=== PATIENT | male | born 1990 | race Caucasian/White ===

== ENCOUNTER 2025-04-10 09:31 | Outpatient (CLI) | payer OTHER, SELFPAY ==
--- NOTE | 2025-04-10 09:40 | NEURO_ITS ---
Impression: # Complains of paresthesia of hands. # No Carpal Tunnel Syndrome # Left Ulnar Neuropathy # Normal Needle/EMG exam. # Pt has bilateral cross innervation between Ulnar/Median nerves. # Had visual vagal syncope during study. Cannot do more localization at this time. Nerve Conduction Studies ?Stim Site NR Peak (ms) P-T Amp (?V) Site1 Site2 Delta-P (ms) Dist (cm) Jakub (m/s) Left Median Anti Sensory (2-3nd Digit) Wrist ? 2.7 25.0 Wrist 2-3nd Digit 2.7 14.0 52 Wrist ? 2.7 26.2 Wrist 2-3nd Digit 2.7 14.0 52 Right Median Anti Sensory (2-3nd Digit) Wrist ? 2.6 22.9 Wrist 2-3nd Digit 2.6 14.0 54 Wrist ? 2.5 24.1 Wrist 2-3nd Digit 2.6 14.0 54 Left Radial Anti Sensory (Base 1st Digit) Wrist ? 1.6 19.2 Wrist Base 1st Digit 1.6 0.0 Right Radial Anti Sensory (Base 1st Digit) Wrist ? 2.2 21.7 Wrist Base 1st Digit 2.2 0.0 Left Ulnar Anti Sensory (5th Digit) Wrist ? 2.4 27.7 Wrist 5th Digit 2.4 14.0 58 Right Ulnar Anti Sensory (5th Digit) Wrist ? 2.3 25.6 Wrist 5th Digit 2.3 14.0 61 ?Stim Site NR Onset (ms) O-P Amp (mV) Site1 Site2 Delta-0 (ms) Dist (cm) Jakub (m/s) Left Median Motor (Abd Poll Brev) Wrist ? 2.6 1.4 Elbow Wrist 6.6 34.0 52 Elbow ? 9.2 1.7 Right Median Motor (Abd Poll Brev) Wrist ? 2.4 1.0 Elbow Wrist 1.2 26.0 217 Elbow ? 3.6 6.4 ELB/ADM Wrist 5.0 26.0 52 ELB/ADM ? 7.4 3.4 Erbs ELB/ADM 1.3 0.0 Erbs ? 8.7 3.0 Left Ulnar Motor (Abd Dig Minimi) Wrist ? 2.4 7.1 A Elbow Wrist 7.1 36.0 51 A Elbow ? 9.5 4.1 B Elbow Wrist 5.0 26.0 52 B Elbow ? 7.4 4.9 Right Ulnar Motor (Abd Dig Minimi) Wrist ? 1.9 8.4 A Elbow Wrist 6.0 35.0 58 A Elbow ? 7.9 7.2 B Elbow Wrist 7.0 24.0 34 B Elbow ? 8.9 2.0 F Wave Studies ?NR F-Lat (ms) L-R F-Lat (ms) Left Median (Mrkrs) (Abd Poll Brev) ? 28.09 0.97 Right Median (Mrkrs) (Abd Poll Brev) ? 29.06 0.97 Left Ulnar (Mrkrs) (Abd Dig Min) ? 31.64 2.68 Right Ulnar (Mrkrs) (Abd Dig Min) ? 28.96 2.68 Electromyography ?Side Muscle Nerve Root Ins Act Fibs Amp Dur Recrt Comment Right 1stDorInt Ulnar C8-T1 Nml Nml Nml Nml Nml Right Ext Indicis Radial (Post Int) C7-8 Nml Nml Nml Nml Nml Right Ext Digitorum Radial (Post Int) C7-8 Nml Nml Nml Nml Nml Right BrachioRad Radial C5-6 Nml Nml Nml Nml Nml Right PronatorTeres Median C6-7 Nml Nml Nml Nml Nml Right Abd Poll Brev Median C8-T1 Nml Nml Nml Nml Nml Right ABD Dig Min Ulnar C8-T1 Nml Nml Nml Nml Nml Right FlexPolLong Median (Ant Int) C7-8 Nml Nml Nml Nml Nml Right Abd Poll Long Radial (Post Int) C7-8 Nml Nml Nml Nml Nml Left 1stDorInt Ulnar C8-T1 Nml Nml Nml Nml Nml Left Ext Indicis Radial (Post Int) C7-8 Nml Nml Nml Nml Nml Left Ext Digitorum Radial (Post Int) C7-8 Nml Nml Nml Nml Nml Left BrachioRad Radial C5-6 Nml Nml Nml Nml Nml Left PronatorTeres Median C6-7 Nml Nml Nml Nml Nml Left Abd Poll Brev Median C8-T1 Nml Nml Nml Nml Nml Left ABD Dig Min Ulnar C8-T1 Nml Nml Nml Nml Nml Left FlexPolLong Median (Ant Int) C7-8 Nml Nml Nml Nml Nml Left Abd Poll Long Radial (Post Int) C7-8 Nml Nml Nml Nml Nml
== END 2025-04-10 09:32 | disposition home or self-care (01) ==
PROVIDERS: PCP Nurse Practitioner Adult Health; Visit Provider Nurse Practitioner Adult Health
DX: R20.2 Paresthesia of skin (principal); G56.22 Lesion of ulnar nerve, left upper limb
CPT/HCPCS: 95886; 95911

== ENCOUNTER 2025-05-08 08:50 | Outpatient (CLI) | payer OTHER, SELFPAY ==
--- NOTE | ~2025-05-08 | XR_ITS ---
EXAMINATION: XR hand BI arthritis min 3V, 05/08/2025 8:55 CDT HISTORY: G56.20 - Lesion of ulnar nerve, unspecified upper limb COMPARISON: No comparisons available. Findings: No acute fracture or malalignment. No significant degenerative changes. Soft tissues unremarkable. Impression: No acute fracture or malalignment. Reviewed, dictated and finalized at location P. Impression: No acute fracture or malalignment.
--- OUTSIDE RECORDS SUMMARY | 2025-05-08 09:23 | XMS_ITS | Encounter Summary ---
Author Organization [facility] Health Address [address] [place] [address] Care Team Providers Care Intelligence Specialist Name Role Phone Unavailable Primary Care Provider Unavailabl e Prior Encounters Date Type Department Care Team Description 09/07/2021 4:00 PM SENIOR PENSIONS ADMINISTRATOR Office Visit [facility] [address] [place] [phone] Ash Art, DDS 07/28/2021 Travel 07/28/2021 4:00 PM SENIOR PENSIONS ADMINISTRATOR Office Visit [facility] [address] [phone] lA Lucas, ANSELMO 06/24/2021 Travel 07/30/[address] [facility] [address] [place] [phone] <No scans attached> 07/30/2019 Converted CPS Chart Documents [facility] [address] [place] [phone] <No scans attached> 07/30/2019 Converted 13x Documents [facility] [address] [phone] <No scans attached> Plan of Treatment Not on file Procedures Procedure Name Priority Date/Time Associated Diagnosis Comments BITEWING - SINGLE RADIOGRAPHIC IMAGE Routine 09/07/2021 4:00 PM SENIOR PENSIONS ADMINISTRATOR ADDITIONAL X-RAY Routine 09/07/2021 4:00 PM SENIOR PENSIONS ADMINISTRATOR SINGLE X-RAY Routine 09/07/2021 4:00 PM SENIOR PENSIONS ADMINISTRATOR LIMITED ORAL EVALUATION - PROBLEM FOCUSED Routine 09/07/2021 4:00 PM SENIOR PENSIONS ADMINISTRATOR CBCT - PROBLEM FOCUSED Routine 4:00 PM SENIOR PENSIONS ADMINISTRATOR CANCELLED APPOINTMENT Routine 04/07/2021 2:00 AM CDT ORAL HYGIENE INSTRUCTIONS Routine 2020 2:00 AM CDT PROPHYLAXIS - ADULT Routine 12/22/2020 2 :00 AM CDT PERIODIC ORAL EVALUATION - ESTABLISHED PATIENT Routine 12/22/2020 2:00 AM CDT BITEWINGS - FOUR RADIOGRAPHIC IMAGES Routine 12/22/2020 2:00 AM CDT ORAL HYGIENE INSTRUCTIONS Routine 2019 2:00 AM SENIOR PENSIONS ADMINISTRATOR PROPHYLAXIS - ADULT Routine 07/25/2019 2 :00 AM SENIOR PENSIONS ADMINISTRATOR PERIODIC ORAL EVALUATION - ESTABLISHED PATIENT Routine 07/25/2019 2:00 AM SENIOR PENSIONS ADMINISTRATOR BITEWINGS - FOUR RADIOGRAPHIC IMAGES Routine 07/25/2019 2:00 AM SENIOR PENSIONS ADMINISTRATOR CANCELLED APPOINTMENT Routine 09/28/2017 2:00 AM CDT OS CONSULT Routine 04/30/2017 2:00 AM CDT BITEWINGS - FOUR RADIOGRAPHIC IMAGES Routine 03/28/2017 2:00 AM CDT PERIODIC ORAL EVALUATION - ESTABLISHED PATIENT Routine 03/25/2017 2:00 AM CDT TOPICAL APPLICATION OF FLUORIDE VARNISH Routine 03/25/2017 2:00 AM CDT PROPHYLAXIS - ADULT Routine 03/25/2017 2 :00 AM CDT ORAL HYGIENE INSTRUCTIONS Routine 2016 2:00 AM CDT CANCELLED APPOINTMENT Routine 02/15/2017 2:00 AM CDT 4 DO COMPOSITE FILLING Routine 7 2:00 AM CDT PERIODIC ORAL EVALUATION - ESTABLISHED PATIENT Routine 09/13/2016 2:00 AM SENIOR PENSIONS ADMINISTRATOR ORAL HYGIENE INSTRUCTIONS Routine 2016 2:00 AM SENIOR PENSIONS ADMINISTRATOR PROPHYLAXIS - ADULT Routine 09/13/2016 2 :00 AM SENIOR PENSIONS ADMINISTRATOR BITEWINGS - FOUR RADIOGRAPHIC IMAGES Routine 09/13/2016 2:00 AM SENIOR PENSIONS ADMINISTRATOR ADDITIONAL X-RAY Routine 09/13/2016 2:00 AM SENIOR PENSIONS ADMINISTRATOR SINGLE X-RAY Routine 09/13/2016 2:00 AM SENIOR PENSIONS ADMINISTRATOR 14 MOL COMPOSITE FILLING Routine 016 2:00 AM CDT ORAL HYGIENE INSTRUCTIONS Routine 2015 2:00 AM CDT ORAL HYGIENE INSTRUCTIONS Routine 2015 2:00 AM CDT UR PERIODONTAL SCALING AND ROOT PLANING - ONE TO THREE TEETH PER QUADRANT Routine 01/28/2016 2:00 AM CDT TOPICAL APPLICATION OF FLUORIDE VARNISH Routine 01/28/2016 2:00 AM CDT PROPHYLAXIS - ADULT Routine 01/28/2016 2 :00 AM CDT COMPREHENSIVE ORAL EVALUATION - NEW OR ESTABLISHED PATIENT Routine 01/28/2016 2:00 AM CDT PANORAMIC RADIOGRAPHIC IMAGE Routine 01/28/2016 2:00 AM CDT INTRAORAL - COMPREHENSIVE SERIES OF RADIOGRAPHIC IMAGES Routine 01/28/2016 2:00 AM CDT INTRAORAL PHOTO Routine 01/28/2016 2:00 AM CDT INTRAORAL PHOTO Routine 01/28/2016 2:00 AM CDT INTRAORAL PHOTO Routine 01/28/2016 2:00 AM CDT INTRAORAL PHOTO Routine 01/28/2016 2:00 AM CDT Visit Diagnoses Not on file [place] [address] [place] [address] [place]
--- OUTSIDE RECORDS SUMMARY | 2025-05-08 09:23 | XMS_ITS | Clinical Summary ---
Author Organization [facility] Health Address [address] [place] [address] Care Team Providers Care Logistics Operations Director Name Role Phone Unavailable Primary Care Provider Unavailabl e Medications ISOtretinoin (Zenatane) 40 mg capsule 02/08/2021 Active nortriptyline (PAMELOR) 10 mg/5 mL solution 07/11/2017 Active Social History Tobacco Use Types Packs/Day Years Used Date Smoking Tobacco: Never Assessed Sex and Gender Information Value Date Recorded Sex Assigned at Not on file Legal Sex Male 1:00 AM PST Gender Identity Not on file Sexual Orientation Not on file Plan of Treatment Health Maintenance Due Date Last Done Comments Periodontal Maintenance 1991 Scaling and Root Planing 02/10/2018 01/28/2016 Dental X-Ray: Full Mouth 01/28/2019 01/28/2016 Dental X-Ray: Panoramic 01/28/2019 01/28/2016 Dental Oral Exam 06/24/2021 12/22/2020, , 03/25/2017, Additional history exists Dental X-Ray: Bitewings 06/24/2021 12/22/2020 Procedures Procedure Name Priority Date/Time Associated Diagnosis Comments PERIODIC ORAL EVALUATION - ESTABLISHED PATIENT Routine 12/22/2020 2:00 AM CDT PANORAMIC RADIOGRAPHIC IMAGE Routine 01/28/2016 2:00 AM CDT UR PERIODONTAL SCALING AND ROOT PLANING - ONE TO THREE TEETH PER QUADRANT Routine 01/28/2016 2:00 AM CDT INTRAORAL - COMPREHENSIVE SERIES OF RADIOGRAPHIC IMAGES Routine 01/28/2016 2:00 AM CDT from Last 3 Months or Most Recently Relevant to Health Maintenance Insurance [facility] [place] PPO
== END 2025-05-08 08:51 | disposition home or self-care (01) ==
PROVIDERS: PCP Nurse Practitioner Adult Health; Visit Provider Plastic Surgery
DX: G56.20 Lesion of ulnar nerve, unspecified upper limb (principal); G56.03 Carpal tunnel syndrome, bilateral upper limbs
CPT/HCPCS: 73130

== ENCOUNTER 2025-06-13 05:51 | Day surgery (SDC) | payer OTHER, SELFPAY ==
[2025-05-30 13:34] VITALS: BMI 30.2
[2025-06-13 06:17] VITALS: BP 102/76; PULSE 80; RESP 18; TEMP 36.6; O2SAT 97
[2025-06-13] MEDS: ACETAMINOPHEN 500 MG TABLET 1000 MG PO (06:27)
[2025-06-13] MEDS: LACTATED RINGERS 1,000 ML 30 ML IV CONT (06:29)
--- NOTE | 2025-06-13 06:47 | WPDHPUPDATE1 ---
History and Physical Update Update Date/Time: 06/13/25 06:47 Patient seen and examined in pre-operative holding area. No interval change in medical history or symptoms. Patient recalls previous discussion of benefits and alternatives to procedure. Continues to desire to proceed with left endoscopic possible oppen carpal tunnel release and left cubital tunnel release . Reviewed procedure, post-op expectations and risks including but not limited to bleeding, infection, injury to tendon/nerve/vessel, decreased hand function, stiffness, RSD, no change or worsening of symptoms. I discussed the possible use of assistants and their participation in the case. Patient stated understanding and signed the consent form wishing to proceed.
--- NOTE | 2025-06-13 06:47 | W.PM.PROC2 ---
Procedure Note - Detailed Date of Procedure 06/13/25 Pre-op Diagnosis Left Carpal and Cubital Tunnel Syndrome Post-op Diagnosis Same Procedure Performed left ectr and CuTR Surgeon José Miguel Lin MD Email Specialist brandon teresa pa-c Anesthesia MAC Description of Procedure INFORMED CONSENT: The patient was seen and examined and marked in the pre-op area.? The patient signed the consent form. PROCEDURE IN DETAIL:The patient taken back to OR on the stretcher in supine position. Time out performed with anesthesia, surgeon and staff agreeing on patient's name site and surgery to be performed SCDs were placed on the lower extremities and inflated. A tourniquet was placed on {left} upper extremity and antibiotics given IV After anesthesia administered sedation I injected {10}cc 1%lido with epi and 0.5% marcaine plain at the operative sites The?{left upper extremity}?was prepped and draped in sterile fashion the??left upper extremity} was? exsanguinated with Esmarch bandage and tourniquet inflated to 250mmHg I made a transverse incision in the {left} volar distal wrist crease through skin and dermis with 15 blade scalpel.? Littler scissors spread down to antebrachial fascia. A small incision was made in antebrachial fascia allowing access to Carpal tunnel. I proceeded with sequential dilation staying in line with the ring finger and hugging the hook of the hamate.? I then used the synovial elevator to free any adhesions from the underside of the transverse carpal ligament. Next I was able to insert the Microaire endoscopic carpal tunnel device with direct visualization of the transverse fibers on the monitor and proceeded with complete segmental retrograde release of the ligament in its entirety.? I irrigated with normal saline and closed with 4-0 monocryl for dermis and subcuticular closure. I next proceeded with making a longitudinal incision between two heads for flexor carpi ulnaris at end of {left} cubital tunnel with 15 blade scalpel.? Littler scissors were used to spread down to FCU fascia.? An incision was made in FCU fascia and ulnar nerve identified exiting cubital tunnel.? I proceeded with complete retrograde release of the cubital tunnel including 7cm proximal for the intermuscular septum.? The nerve appeared healthy with visible vaso nervorum.? There was no subluxation on full elbow range of motion. ? I irrigated with normal saline and closure with 4-0 monocryl for dermis and subcuticular. The incisions were covered with Dermabond then 4x4s, myles, and a posterior elbow and volar wrist splint for patient safety, security and comfort and secured with dajuan bandages after the tourniquet was let down noting the hand was warm and well perfused.? Patient awaken from anesthesia and transferred to recovery in stable condition Complications - none EBL- 1cc Disposition - home in stable condition Brandon Teresa PA-C was essential for positioning, retraction, closure and dressing placement. [facility] [place] Billing Surgery - Charge Forward: Surgery Billing ([id number] same for brandon adding )
--- NOTE | 2025-06-13 07:17 | WPDANESEPPF ---
Anes - Initial Pre Proc Eval Procedure: Operation Date: 06/13/25 07:30 Proposed Procedures p Left Endoscopic Carpal Tunnel Release, Possible Open Carpal Tunnel Release - José Miguel Lin MD s Left Cubital Tunnel Release - José Miguel Lin MD Date/Time: 06/13/25 07:17 Surgeon: José Miguel Lin MD Pre Op Diagnosis: Left Carpal and Cubital Tunnel Syndrome Patient Data Age: 34 Gender: M Height: 1.85 m Weight: 106.3 kg Last Vital Signs Temp 97.9 F 06/13/25 06:17 Pulse 80 06/13/25 06:17 Resp 18 06/13/25 06:17 BP 102/76 06/13/25 06:17 Pulse Ox 97 06/13/25 06:17 O2 Del Method Room Air 06/13/25 06:17 Allergies Allergy/AdvReac Type Severity Reaction Status Date / Time scopolamine Allergy Unknown UNKNOWN Verified 06/13/25 06:15 REACTION FROM CHILDHOOD Home Medications ?Medication ?Instructions ?Recorded ?Confirmed ?Type cholecalciferol (vitamin D3) 50 50 mcg PO DAILY 07/09/21 06/13/25 History mcg (2,000 unit) capsule nortriptyline 50 mg capsule 50 mg PO DAILY 07/09/21 06/13/25 History Patient hx anesthesia problems: none Family hx anesthesia problems: none Results Review: All pre-operative results and documents have been reviewed as part of the pre-operative evaluation. [facility] Past Medical History Medical History COVID-19 Anal fistula H/O migraine Family History Family History Grandparent Diabetes mellitus Social History Social History (Updated 06/11/25 @ 08:20 by Brionna Clement) Social History: Caffeine-daily Smoking status: Never smoker Second hand tobacco smoke exposure: Yes Alcohol intake: current Drinks per week: 2 Alcohol use details: rarely Substance use: current Substance use type: does not use Lack of Transportation: No Lack of Food: Never True Current Housing: I Have Housing Concerned About Future Housing: No Difficulty Paying Gas/Electric Bills: No Difficulty Paying for Meds: No Currently Unemployed: No Education: Bachelor's Degree Difficulty w/ Childcare or Family Care: No Living arrangements: with family Gender identity (if verbalized by the patient): Male Spiritual care concerns: No Anes - Eval Final PreProcedure Day of Procedure 06/13/25 07:17 Heart: regular rate and rhythm Lungs: clear to auscultation Airway: Mallampati scale class II Neurological: alert and oriented Last oral intake: >/= 8 hours ASA classification: II Anesthetic plan: proceed Anesthesia type and monitoring: general Results Review: All pre-operative results and documents have been reviewed as part of the pre-operative evaluation. Informed Consent: The patient's anesthetic plan and its attendant risks and benefits were discussed with the patient/family/POA. Questions were solicited and answers provided to the satisfaction of the patient/family/POA.
[2025-06-13] MEDS: ceFAZolin SODIUM 2 GM/20 ML SW SYRINGE IV PUSH (07:30)
[2025-06-13] MEDS: BUPivacaine HCL 0.5% 10 ML AMP INFILTRATE (07:50)
[2025-06-13] MEDS: LIDO 1%/EPINEPHRINE 1:100,000 20 ML VIAL 10 ML INFILTRATE (07:50)
[2025-06-13 08:01] VITALS: BP 112/68; PULSE 107; RESP 16; O2SAT 96
[2025-06-13 08:15] VITALS: BP 108/72; PULSE 91; RESP 16; O2SAT 96
[2025-06-13 08:40] VITALS: BP 102/67; PULSE 86; RESP 16; O2SAT 99
== END 2025-06-13 08:53 | disposition home or self-care (01) ==
LOC: ASC 06:04
PROVIDERS: PCP Nurse Practitioner Adult Health; Visit Provider Plastic Surgery
PROC: 01N54ZZ Release Median Nerve, Percutaneous Endoscopic Approach (ICD-10-PCS; CPT 29848; principal; 2025-06-13 07:30)
PROC: (CPT 64718; 2025-06-13 07:30)
DX: G56.02 Carpal tunnel syndrome, left upper limb (principal); G56.22 Lesion of ulnar nerve, left upper limb
CPT/HCPCS: 29848; 64718